=== PATIENT | male | born 1960 | race Caucasian/White ===

== ENCOUNTER 2024-10-04 06:15 | Day surgery (SDC) | payer OTHER, SELFPAY ==
[2024-10-04 07:35] LABS: Glucose - Point of Care 151 mg/dl (70-99)
== END 2024-10-04 09:29 | disposition home or self-care (01) ==
LOC: GI 06:15
PROVIDERS: ATTENDING PHYSICIAN Specialist
DX: Z12.11 Encounter for screening for malignant neoplasm of colon (principal); K57.30 Diverticulosis of large intestine without perforation or abscess without bleeding; R19.5 Other fecal abnormalities; D12.3 Benign neoplasm of transverse colon; K63.5 Polyp of colon
CPT/HCPCS: 45385; 88305; 82962

== ENCOUNTER → 2025-05-26 09:53 | Outpatient (REF) | payer MEDICARE, OTHER, SELFPAY | LOC: RAD 09:53 | PROVIDERS: ATTENDING PHYSICIAN Internal Medicine; FAMILY PHYSICIAN Internal Medicine | DX: T14.8XXA Other injury of unspecified body region, initial encounter (principal) | CPT/HCPCS: 72110 ==